=== PATIENT | female | born 1970 | race Caucasian/White ===

== ENCOUNTER 2017-02-18 11:25 | Observation (INO) | payer MEDICARE, BC ==
[2017-02-18 11:25] VITALS: BMI 23.4
[2017-02-18] MEDS ORDERED: Sodium Chloride 0.9% 250 ML IV ONE ×2 (11:35→12:12)
[2017-02-18 12:07] LABS: BASO # 0.1 K/uL (0.0-0.2); BASO % 1.3 % (0.0-2.0); EOS # 0.1 K/uL (0.0-0.7); EOS % 1.4 % (0.0-4.0); HEMATOCRIT 38.9 % (34.0-47.0); LYMPH # 0.9 K/uL (1.0-4.3); LYMPH % 17.1 % (20.0-40.0); MEAN CELL VOLUME 84.1 fL (81.0-99.0); MEAN CORPUSCULAR HEMOGLOBIN 26.3 pg (27.0-31.0); MEAN CORPUSCULAR HGB CONC 31.3 g/dL (33.0-37.0); MEAN PLATELET VOLUME 8.8 fL (7.2-11.7); MONO # 0.3 K/uL (0.0-0.8); MONO % 5.6 % (0.0-10.0); RED CELL DISTRIBUTION WIDTH 20.4 % (11.5-14.5); WHITE BLOOD COUNT 5.2 K/uL (4.8-10.8)
--- NOTE | 2017-02-18 12:13 | C.PDOC ---
History Of Present Illness 47 y/o female with Hx of Anemia presents to ED with complaints of intermittent Vaginal bleeding for the past year. Today Patient was on dialysis when vaginal bleeding started and was sent to ED for evaluation. Patient has seen Dr. Wong but states "she doesn't know what has been done to her". Patient denies abdominal pain, fever chills, N/V/D or any other complaints at this time. Time Seen by Provider: 02/18/17 11:34 Chief Complaint (Nursing): Female Genitourinary History Per: Patient History/Exam Limitations: no limitations Onset/Duration Of Symptoms: Hrs Current Symptoms Are (Timing): Still Present Associated Symptoms: denies: Fever, Nausea, Vomiting Past Medical History Reviewed: Historical Data, Nursing Documentation, Vital Signs Vital Signs: Last Vital Signs Temp 98.4 F 02/18/17 11:28 Pulse 65 02/18/17 18:51 Resp 18 02/18/17 18:51 BP 122/70 02/18/17 18:51 Pulse Ox 99 02/18/17 18:51 - Medical History PMH: Anemia, HTN, Hypercholesterolemia, End Stage Renal Disease (on dialysis t- nikole-sat) Surgical History: - [facility] Procedures EXTIRPATION OF MATTER FROM LEFT CEPHALIC VEIN, PERC APPROACH (06/15/16) HEMODIALYSIS (07/07/14) INSERTION OF INFUSION DEV INTO R FEMOR VEIN, PERC APPROACH (06/15/16) PERFORMANCE OF URINARY FILTRATION, SINGLE (06/25/16) [facility] SHUNT (04/05/14) VACCINATION NEC (07/07/14) VENOUS CATHETERIZATION FOR RENAL DIALYSIS (04/05/14) Family History: States: Unknown Family Hx - Social History Hx Tobacco Use: No Hx Alcohol Use: No Hx Substance Use: No - Immunization History Hx Tetanus Toxoid Vaccination: Yes Hx Influenza Vaccination: Yes Review Of Systems Constitutional: Negative for: Fever, Chills Cardiovascular: Negative for: Chest Pain Respiratory: Negative for: Shortness of Breath Gastrointestinal: Negative for: Nausea, Vomiting, Diarrhea Neurological: Negative for: Weakness, Headache Physical Exam - Physical Exam Appears: Non-toxic, No Acute Distress Skin: Normal Color, Warm Head: Atraumatic, Normacephalic Eye(s): bilateral: Normal Inspection Oral Mucosa: Moist Neck: Normal ROM Cardiovascular: Rhythm Regular Respiratory: No Rales, No Rhonchi, No Wheezing Gastrointestinal/Abdominal: Soft, No Tenderness, No Guarding, No Rebound Extremity: Normal ROM, No Pedal Edema Neurological/Psych: Oriented x3, Normal Speech, Normal Cognition ED Course And Treatment - Laboratory Results Result Diagrams: 02/18/17 11:59 02/18/17 11:59 ECG Rhythm: Sinus Rhythm (Normal) ECG Interpretation: Abnormal Interpretation Of ECG: Minimal voltage criteria for LVH, may be normal variant. Nonspecific ST abnormality Rate From EC O2 Sat by Pulse Oximetry: 99 (RA) Pulse Ox Interpretation: Normal Progress Note: Pt passed ~500ml of clots then bleed down to trickle Medical Decision Making Medical Decision Making: Pt remained stable in the ED Bleeding slowed, H/H ok In view of the heavy bleeding observation indicated Discussed with dr Campbell who agrees with plan Dr. 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 MD/ has examined the patient and agrees with the treatment plan. - Scribe Statement The provider has reviewed the documentation as recorded by the Yaz Mcleod All medical record entries made by the Yaz were at my direction and personally dictated by me. I have reviewed the chart and agree that the record accurately reflects my personal performance of the history, physical exam, medical decision making, and the department course for this patient. I have also personally directed, reviewed, and agree with the discharge instructions and disposition.
[2017-02-18 12:44] LABS: CHLORIDE 91 mmol/L (98-107); POTASSIUM 5.1 mmol/L (3.6-5.2); SODIUM 136 mmol/L (132-148)
[2017-02-18 12:46] LABS: BILIRUBIN,TOTAL 0.9 mg/dL (0.2-1.3); GFR AFRICAN-AMERICAN 6
[2017-02-18 12:47] LABS: ALB/GLOB RATIO 1.2 (1.0-2.1); ALKALINE PHOSPHATASE 41 U/L (38-126); ALT/SGPT 14 U/L (9-52); AST/SGOT 13 U/L (14-36); BLOOD UREA NITROGEN 52 mg/dL (7-17); CARBON DIOXIDE 32 mmol/L (22-30); GLUCOSE,RANDOM 82 mg/dL (65-105); TOTAL PROTEIN 6.8 g/dL (6.3-8.3)
[2017-02-18 12:48] LABS: CALCIUM 8.5 mg/dl (8.6-10.4)
--- NOTE | 2017-02-18 13:21 | US ---
HISTORY: vag bleeding COMPARISON: None available. TECHNIQUE: Transvaginal pelvic ultrasound. FINDINGS: UTERUS: Measures 10.7 x 5.1 x 6.8 cm. Anteverted. ENDOMETRIUM: Measures 7 mm in diameter. RIGHT OVARY: Measures 3.9 x 2.8 x 3.8 cm. Blood flow is demonstrated. 2.8 x 1.8 x 2.9 cm cyst. LEFT OVARY: Measures 3.8 x 2.4 x 3.8 cm. Blood flow is demonstrated. 2.1 x 1.6 x 2.2 cyst. FREE FLUID: No significant free fluid noted. OTHER FINDINGS: None. IMPRESSION: Echogenic heterogeneous material with evidence of vascularity noted at the level of the lower uterine segment/ endocervical canal. Correlate clinically for active hemorrhage. Recommend clinical correlation, gynecologic consultation, and evaluation with hysteroscopy if clinically feasible. Bilateral ovarian cysts.
--- NOTE | 2017-02-19 00:38 | CP.PCM.HP ---
History of Present Illness - History of Present Illness History of Present Illness: Cheif complain: missed HD 47 y/o female with Hx of Anemia presents to ED with complaints of intermittent Vaginal bleeding for the past year. Today Patient was on dialysis when vaginal bleeding started and was sent to ED for evaluation. Patient has seen Dr. Wong but states "she doesn't know what has been done to her". Patient denies abdominal pain, fever chills, N/V/D or any other complaints at this time. Present on Admission - Present on Admission Any Indicators Present on Admission: Yes History of DVT/PE: No History of Uncontrolled Diabetes: No Urinary Catheter: No Decubitus Ulcer Present: No History Surgical Site Infection Following: None Review of Systems - Review of Systems Systems not reviewed;Unavailable: Acuity of Condition - Constitutional Constitutional: Fatigue, Lethargy - Breasts Breasts: Skin Changes - Cardiovascular Cardiovascular: absent: As Per HPI, Acrocyanosis, Chest Pain, Chest Pain at Rest , Chest Pain with Activity, Claudication, Diaphoresis, Dyspnea, Dyspnea on Exertion, Edema, Irregular Heart Rhythm, Pain Radiating to Arm/Neck/Jaw, Leg Edema, Leg Ulcers, Lightheadedness, Orthopnea, Palpitations, Paroxysmal Nocturnal Dyspnea, Pedal Edema, Radiating Pain, Rapid Heart Rate, Slow Heart Rate, Syncope, Other - Respiratory Respiratory: Dyspnea. absent: As Per HPI, Cough, Hemoptysis, Dyspnea on Exertion, Wheezing, Snoring, Stridor, Pain on Inspiration, Chest Congestion, Excessive Mucous Production, Change in Mucous Color, Pain with Coughing, Other - Gastrointestinal Gastrointestinal: absent: As Per HPI, Abdominal Pain, Belching, Bloating, Change in Bowel Habits, Change in Stool Character, Coffee Ground Emesis, Constipation, Cramping, Diarrhea, Dyspepsia, Dysphagia, Early Satiety, Excessive Flatus, Fecal Incontinence, Heartburn, Hematemesis, Hematochezia, Loose Stools, Melena, Nausea, Odynophagia, Temesmus, Vomiting, Other - Menstruation Menstruation: Abnormal Vaginal Bleeding - Endocrine Endocrine: absent: As Per HPI, Change in Body Appearance, Change in Libido, Cold Intolorance, Deepening of Voice, Excessive Sweating, Fatigue, Flushing, Heat Intolorance, Increase in Ring/Shoe/Hat Size, Palpitations, Polydipsia, Polyphagia, Polyuria, Other Past Patient History - Infectious Disease Hx of Infectious Diseases: None - Past Medical History & Family History Past Medical History?: Yes - Past Social History Smoking Status: Never Smoked - CARDIAC Hx Hypercholesterolemia: Yes Hx Hypertension: Yes - PULMONARY Hx Respiratory Disorders: No - NEUROLOGICAL Hx Neurological Disorder: No - HEENT Hx HEENT Problems: No - RENAL Hx Chronic Kidney Disease: Yes Date of Last Dialysis Treatment: 02/18/17 - ENDOCRINE/METABOLIC Hx Endocrine Disorders: No - HEMATOLOGICAL/ONCOLOGICAL Hx Anemia: Yes - INTEGUMENTARY Hx Dermatological Problems: No - MUSCULOSKELETAL/RHEUMATOLOGICAL Hx Musculoskeletal Disorders: No Hx Falls: No - GASTROINTESTINAL Hx Gastrointestinal Disorders: No - GENITOURINARY/GYNECOLOGICAL Hx Genitourinary Disorders: No - PSYCHIATRIC Hx Substance Use: No - SURGICAL HISTORY Hx Surgeries: Yes Hx Section: Yes Hx Vascular Access Device: Yes (Left AV fistula, as per patient has had dialyiss catheter replaced 5 times) Other/Comment: with left subclavian permacath - ANESTHESIA Hx Anesthesia: Yes Hx Anesthesia Reactions: No Hx Malignant Hyperthermia: No Has any member of the family had a problem w/ anesthesia?: No Meds Allergies/Adverse Reactions: Allergies Allergy/AdvReac Type Severity Reaction Status Date / Time No Known Allergies Allergy Verified 10/28/16 09:30 Physical Exam - Constitutional Appears: No Acute Distress - Head Exam Head Exam: ATRAUMATIC, NORMAL INSPECTION, NORMOCEPHALIC - Eye Exam Eye Exam: EOMI, Normal appearance, PERRL Pupil Exam: NORMAL ACCOMODATION, PERRL - Respiratory Exam Respiratory Exam: Clear to Auscultation Bilateral, NORMAL BREATHING PATTERN - Cardiovascular Exam Cardiovascular Exam: REGULAR RHYTHM - GI/Abdominal Exam GI & Abdominal Exam: Normal Bowel Sounds, Soft. absent: Tenderness - Extremities Exam Extremities exam: Positive for: normal inspection Results - Vital Signs Recent Vital Signs: Last Vital Signs Temp 98.7 F 02/18/17 19:03 Pulse 68 02/18/17 19:24 Resp 18 02/18/17 19:24 BP 158/87 H 02/18/17 19:03 Pulse Ox 99 02/18/17 19:06 - Labs Result Diagrams: 02/18/17 11:59 02/18/17 11:59 Assessment & Plan (1) ESRD (end stage renal disease) on dialysis Status: Acute (2) Vaginal bleeding Status: Acute (3) HTN (hypertension) Status: Acute Priority: High
[2017-02-19 01:12] VITALS: RESP 20
[2017-02-19 08:36] VITALS: TEMP 98.3
[2017-02-19] MEDS ORDERED: Metoprolol Succinate 25 mg XL Tab PO SCH (10:00)
--- NOTE | 2017-02-19 13:09 | CP.PCM.CON ---
History of Present Illness - History of Present Illness History of Present Illness: 47 yr [facility] for end stage renal failure c/o vaginal bleeding from 1 month, min bleeding now, no clots.pt states she has irrgularv period for 1 y. saw her md dr perez 3 weeks ago. told her she will find another surgeon for her. pt has min bleeding today. obhx 1 x c/s pmh end stage renal faliure all nkda psh c/s soch den pelvic exam ex gen old blood, cervix closed, min bleeding, ut anteverted, 8 week size, no adexal mass sono echogenic hetrogenous endometrium at the lowe uterine segment/cervix Review of Systems - Reproductive: Female Reproductive:Female: Abnormal Vaginal Bleeding Past Patient History - Infectious Disease Hx of Infectious Diseases: None - Past Medical History & Family History Past Medical History?: Yes - Past Social History Smoking Status: Never Smoked - CARDIAC Hx Hypercholesterolemia: Yes Hx Hypertension: Yes - PULMONARY Hx Respiratory Disorders: No - NEUROLOGICAL Hx Neurological Disorder: No - HEENT Hx HEENT Problems: No - RENAL Hx Chronic Kidney Disease: Yes Date of Last Dialysis Treatment: 02/18/17 - ENDOCRINE/METABOLIC Hx Endocrine Disorders: No - HEMATOLOGICAL/ONCOLOGICAL Hx Anemia: Yes - INTEGUMENTARY Hx Dermatological Problems: No - MUSCULOSKELETAL/RHEUMATOLOGICAL Hx Musculoskeletal Disorders: No Hx Falls: No - GASTROINTESTINAL Hx Gastrointestinal Disorders: No - GENITOURINARY/GYNECOLOGICAL Hx Genitourinary Disorders: No - PSYCHIATRIC Hx Substance Use: No - SURGICAL HISTORY Hx Surgeries: Yes Hx Section: Yes Hx Vascular Access Device: Yes (Left AV fistula, as per patient has had dialyiss catheter replaced 5 times) Other/Comment: with left subclavian permacath - ANESTHESIA Hx Anesthesia: Yes Hx Anesthesia Reactions: No Hx Malignant Hyperthermia: No Has any member of the family had a problem w/ anesthesia?: No Meds Allergies/Adverse Reactions: Allergies Allergy/AdvReac Type Severity Reaction Status Date / Time No Known Allergies Allergy Verified 10/28/16 09:30 - Medications Medications: Current Medications Calcium Acetate (Phoslo) 667 mg PO TID [facility] Last Admin: 02/19/17 10:21 Dose: 667 mg Metoprolol Succinate (Toprol Xl) 25 mg PO DAILY [facility] Last Admin: 02/19/17 10:21 Dose: 25 mg Physical Exam - Constitutional Appears: Well - Exam Exam: NORMAL INSPECTION External exam: NORMAL EXTERNAL EXAM (min bleeding) Bimanual exam: NORMAL BIMANUAL EXAM Results - Vital Signs Recent Vital Signs: Last Vital Signs Temp 98.3 F 02/19/17 08:00 Pulse 73 02/19/17 10:20 Resp 20 02/19/17 08:00 BP 130/78 02/19/17 10:20 Pulse Ox 96 02/19/17 08:00 - Labs Result Diagrams: 02/18/17 11:59 02/18/17 11:59 Assessment & Plan - Assessment and Plan (Free Text) Assessment: 47 yr s/p dialysis for end stage failure/irrgular menses Plan: plan no acute issues. on dc home follow with Dr Perez for d&c as an out pateint . cont medical management Pt understand and agrees - Date & Time Date: 02/19/17 Time: 13:20
--- NOTE | 2017-02-19 14:56 | CP.PCM.PN ---
Subjective - Date & Time of Evaluation Date of Evaluation: 02/19/17 Time of Evaluation: 12:00 - Subjective Subjective: Pt seen and examined today , denies any chest pain sob, + vaginal bleeding , lesser than yesterday, states bleeding on and off for 1 month hgb stable seen by Dr. Quintanilla today , bedside exam done and pt cleared for discharge home and f/u with Dr. Calderon out patient for possible D&C Objective - Vital Signs/Intake and Output Vital Signs (last 24 hours): Temp Pulse Resp BP Pulse Ox 98.3 F 73 20 130/78 96 02/19/17 08:00 02/19/17 10:20 02/19/17 08:00 02/19/17 10:20 02/19/17 08:00 Intake and Output: 02/19/17 02/19/17 06:59 18:59 Intake Total 400 Balance 400 - Medications Medications: Current Medications Calcium Acetate (Phoslo) 667 mg PO TID [facility] Last Admin: 02/19/17 10:21 Dose: 667 mg Metoprolol Succinate (Toprol Xl) 25 mg PO DAILY [facility] Last Admin: 02/19/17 10:21 Dose: 25 mg - Labs Labs: PT 10.6 SECONDS (9.7-12.2) 02/18/17 11:59 INR 1.0 02/18/17 11:59
[2017-02-19 16:12] VITALS: BP 158/86; PULSE 74; O2SAT 100
--- NOTE | 2017-02-20 04:28 | CP.PCM.DIS ---
Provider - Provider Date of Admission: 02/18/17 15:02 Attending physician: Hector Campbell MD Time Spent in preparation of Discharge (in minutes): 30 Diagnosis - Discharge Diagnosis (1) ESRD (end stage renal disease) on dialysis Status: Acute (2) Vaginal bleeding Status: Acute (3) HTN (hypertension) Status: Acute Priority: High Hospital Course - Lab Results Lab Results: Most Recent Lab Values WBC 5.2 K/uL (4.8-10.8) 02/18/17 11:59 RBC 4.63 Mil/uL (3.80-5.20) 02/18/17 11:59 Hgb 12.2 g/dL (11.0-16.0) D 02/18/17 11:59 Hct 38.9 % (34.0-47.0) 02/18/17 11:59 MCV 84.1 fL (81.0-99.0) 02/18/17 11:59 MCH 26.3 pg (27.0-31.0) L 02/18/17 11:59 MCHC 31.3 g/dL (33.0-37.0) L 02/18/17 11:59 RDW 20.4 % (11.5-14.5) H 02/18/17 11:59 Plt Count 213 K/uL (130-400) 02/18/17 11:59 MPV 8.8 fL (7.2-11.7) 02/18/17 11:59 Neut % (Auto) 74.6 % (50.0-75.0) 02/18/17 11:59 Lymph % (Auto) 17.1 % (20.0-40.0) L 02/18/17 11:59 [place] % (Auto) 5.6 % (0.0-10.0) 02/18/17 11:59 Eos % (Auto) 1.4 % (0.0-4.0) 02/18/17 11:59 Baso % (Auto) 1.3 % (0.0-2.0) 02/18/17 11:59 Neut # 3.9 K/uL (1.8-7.0) 02/18/17 11:59 Lymph # 0.9 K/uL (1.0-4.3) L 02/18/17 11:59 [place] # 0.3 K/uL (0.0-0.8) 02/18/17 11:59 Eos # 0.1 K/uL (0.0-0.7) 02/18/17 11:59 Baso # 0.1 K/uL (0.0-0.2) 02/18/17 11:59 PT 10.6 SECONDS (9.7-12.2) 02/18/17 11:59 INR 1.0 02/18/17 11:59 Sodium 136 mmol/L (132-148) 02/18/17 11:59 Potassium 5.1 mmol/L (3.6-5.2) 02/18/17 11:59 Chloride 91 mmol/L (98-107) L 02/18/17 11:59 Carbon Dioxide 32 mmol/L (22-30) H 02/18/17 11:59 Anion Gap 18 (10-20) 02/18/17 11:59 BUN 52 mg/dL (7-17) H 02/18/17 11:59 Creatinine 8.6 MG/DL (0.7-1.2) H* 02/18/17 11:59 Est GFR ( Amer) 6 02/18/17 11:59 Est GFR (Non-Af Amer) 5 02/18/17 11:59 Random Glucose 82 mg/dL (65-105) 02/18/17 11:59 Calcium 8.5 mg/dl (8.6-10.4) L 02/18/17 11:59 Total Bilirubin 0.9 mg/dL (0.2-1.3) 02/18/17 11:59 AST 13 U/L (14-36) L 02/18/17 11:59 ALT 14 U/L (9-52) 02/18/17 11:59 Alkaline Phosphatase 41 U/L (38-126) 02/18/17 11:59 Total Protein 6.8 g/dL (6.3-8.3) 02/18/17 11:59 Albumin 3.7 g/dL (3.5-5.0) 02/18/17 11:59 Globulin 3.1 gm/dL (2.2-3.9) 02/18/17 11:59 Albumin/Globulin Ratio 1.2 (1.0-2.1) 02/18/17 11:59 Beta HCG, Quant < 2.39 mIU/ML 02/18/17 11:59 Blood Type A POSITIVE 02/18/17 12:18 Antibody Screen Negative 02/18/17 12:18 - Hospital Course Hospital Course: Pt seen and examined today , denies any chest pain sob, + vaginal bleeding , lesser than yesterday, states bleeding on and off for 1 month hgb stable seen by Dr. Quintanilla today , bedside exam done and pt cleared for discharge home and f/u with Dr. Calderon out patient for possible D&C Discharge Exam - Head Exam Head Exam: ATRAUMATIC, NORMAL INSPECTION, NORMOCEPHALIC - Eye Exam Eye Exam: EOMI, Normal appearance, PERRL Pupil Exam: NORMAL ACCOMODATION, PERRL - Respiratory Exam Respiratory Exam: Clear to PA & Lateral, NORMAL BREATHING PATTERN - Cardiovascular Exam Cardiovascular Exam: REGULAR RHYTHM, +S1, +S2 - GI/Abdominal Exam GI & Abdominal Exam: Normal Bowel Sounds - Rectal Exam Rectal Exam: Deferred Discharge Plan - Follow Up Plan Condition: FAIR Disposition: HOME/ ROUTINE Instructions: Dialysis Diet (DC), Dialysis Diet (GEN), End Stage Kidney Disease (DC) Additional Instructions: Please f/u with Dr. Campbell office in 1 week f/u with Dr. Wong in 3-5 days- Call for appointment Continue HD as scheduled. Continue medication as per Med. Rec. return to emergency if symptoms persists. Referrals: Alfred Villalobos MD [Staff Provider] - Hector Campbell MD [Staff Provider] - Corrina Wong MD [Staff Provider] -
--- NOTE | 2017-02-20 12:07 | CARD ---
APPROVED REPORT EKG Measurement Heart [id number] <Conclusion> Poor data quality, interpretation may be adversely affected Normal sinus rhythm Minimal voltage criteria for LVH, may be normal variant Nonspecific ST abnormality Abnormal ECG
== END 2017-02-19 16:00 | disposition home or self-care (01) ==
LOC: C.ER 11:25 → C.9E 15:02 → C.5T 16:53
PROVIDERS: ADMIT Internal Medicine; ATTEND Internal Medicine
DX: N93.9 Abnormal uterine and vaginal bleeding, unspecified (principal); E78.00 Pure hypercholesterolemia, unspecified; I12.0 Hypertensive chronic kidney disease with stage 5 chronic kidney disease or end stage renal disease; N18.6 End stage renal disease; Z99.2 Dependence on renal dialysis
CPT/HCPCS: 76830; 80053; 84702; 85025; 85610; 86850; 86900; 99285; G0378; J7040

== ENCOUNTER 2017-02-25 17:28 | Observation (INO) | payer MEDICARE, BC ==
[2017-02-25 17:29] VITALS: BMI 23.4
--- NOTE | 2017-02-25 19:17 | C.PDOC ---
History Of Present Illness 47 y/o female presents to the ED with complaints of feeling dizzy and headache today. Pt receives dialysis on Friday//Saturdays. Denies visual changes , weakness, vomiting or any other complaints. Time Seen by Provider: 02/25/17 19:17 Chief Complaint (Nursing): Dizziness/Lightheaded History Per: Patient History/Exam Limitations: no limitations Onset/Duration Of Symptoms: Hrs Current Symptoms Are (Timing): Still Present Associated Symptoms Preceding Syncopal Episode: No Predromal Symptoms (Sudden Onset) Seizure Or Post-ictal Symptoms: None Fall Associated With With Symptoms: No Severity: Mild Recent travel outside of the [place]: No - Symptoms Of CVA Associated Symptoms: denies: New Vision Deficit(Left), New Vision Deficit(Right) Current Coumadin Use?: No Recent Head Trauma: No Past Medical History Reviewed: Historical Data, Nursing Documentation, Vital Signs Vital Signs: Last Vital Signs Temp 98.6 F 02/25/17 21:30 Pulse 67 02/25/17 21:30 Resp 18 02/25/17 21:30 BP 149/89 02/25/17 21:30 Pulse Ox 100 02/25/17 21:30 - Medical History PMH: Anemia, HTN, Hypercholesterolemia, End Stage Renal Disease (on dialysis t- nikole-sat), Chronic Kidney Disease Surgical History: - [facility] Procedures EXTIRPATION OF MATTER FROM LEFT CEPHALIC VEIN, PERC APPROACH (06/15/16) HEMODIALYSIS (07/07/14) INSERTION OF INFUSION DEV INTO R FEMOR VEIN, PERC APPROACH (06/15/16) PERFORMANCE OF URINARY FILTRATION, SINGLE (06/25/16) [facility] ANNA DIALYSIS SHUNT (04/05/14) VACCINATION NEC (07/07/14) VENOUS CATHETERIZATION FOR RENAL DIALYSIS (04/05/14) Family History: States: Unknown Family Hx - Social History Hx Tobacco Use: No Hx Alcohol Use: No Hx Substance Use: No - Immunization History Hx Tetanus Toxoid Vaccination: Yes Hx Influenza Vaccination: Yes Hx Pneumococcal Vaccination: No Review Of Systems Constitutional: Negative for: Fever, Chills Eyes: Negative for: Vision Change ENT: Negative for: Throat Pain Cardiovascular: Negative for: Chest Pain Respiratory: Negative for: Shortness of Breath Gastrointestinal: Negative for: Vomiting Genitourinary: Negative for: Pelvic Pain Musculoskeletal: Negative for: Back Pain Skin: Negative for: Rash, Lesions, Jaundice, Bruising Neurological: Positive for: Headache, Dizziness. Negative for: Weakness Psych: Negative for: Anxiety Physical Exam - Physical Exam Appears: Non-toxic, No Acute Distress Skin: Warm, Dry, No Rash Head: Atraumatic, Normacephalic Eye(s): bilateral: Normal Inspection, PERRL, EOMI Ear(s): Bilateral: Normal Neck: Trachea Midline, Supple Chest: Symmetrical Cardiovascular: Rhythm Regular, No Murmur Respiratory: No Rales, No Rhonchi, No Wheezing Gastrointestinal/Abdominal: Soft, No Tenderness, No Distention Back: No CVA Tenderness Extremity: Normal ROM, Other (left arm with dialysis shunt, good thrill and bruit) Extremity: Bilateral: Atraumatic, Normal Color And Temperature, Normal ROM Neurological/Psych: Oriented x3, Normal Speech, Normal Cognition, Normal Motor, Normal Sensation Gait: Steady ED Course And Treatment - Laboratory Results Result Diagrams: 02/25/17 20:17 02/25/17 20:17 ECG: Interpreted By Me, Viewed By Ma ECG Rhythm: Sinus Rhythm (69), Nonspecific Changes O2 Sat by Pulse Oximetry: 98 (room air) Pulse Ox Interpretation: Normal - Radiology CXR: Interpreted by Me, Viewed By Me - CT Scan/US CT abdomen Other Rad Studies (CT/US): Read By Radiologist, Radiology Report Reviewed CT/US Interpretation: EXAM: CT Abdomen and Pelvis Without Intravenous Contrast. CLINICAL HISTORY: 47 years old, female; Signs and symptoms; Other: Vaginal bleed; Patient HX: H/o arf; Additional info: Vag bleeding. TECHNIQUE: Axial computed tomography images of the abdomen and pelvis without intravenous contrast. This. CT exam was performed using one or more of the following dose reduction techniques: automated. exposure control, adjustment of the mA and/or kV according to patient size, and/or use of iterative. reconstruction technique. Coronal and sagittal reformatted images were created and reviewed. EXAM DATE/TIME: Exam ordered 02/25/2017 8:15 PM. COMPARISON: CT - ABD/PEL W/PO 02/01/2012 8:46:13 PM. FINDINGS: Lower thorax: Vascular calcifications including coronary artery calcifications Mild atelectasis or. edema in the bases. ABDOMEN: Liver: Probable cysts in the liver not completely characterized. Gallbladder and bile ducts: Unremarkable. No calcified stones. No ductal dilation. Pancreas: Unremarkable. No ductal dilation. Spleen: Unremarkable. No splenomegaly. Adrenals: Unremarkable. No mass. Kidneys and ureters: Markedly enlarged cystic kidneys are noted bilaterally most in keeping with. polycystic kidney disease. Some appear to be calcified bilaterally. Stomach and bowel: Mild fecal retention. No obstruction. No mucosal thickening. Appendix: Appendix not seen. PELVIS: Bladder: Unremarkable. No stones. Reproductive: 1.7 cm low-density left cyst probably an ovarian cyst, sonography as indicated. ABDOMEN and PELVIS: Intraperitoneal space: Unremarkable. No free air. No significant fluid collection. Bones/joints: No acute fracture. No dislocation. Soft tissues: Unremarkable. Vasculature: Unremarkable. No abdominal aortic aneurysm. Lymph nodes: Unremarkable. No enlarged lymph nodes. IMPRESSION: Markedly enlarged cystic kidneys are noted bilaterally most in keeping with polycystic kidney. disease. Some appear to be calcified bilaterally CT head Other Rad Studies (CT/US): Read By Radiologist, Radiology Report Reviewed CT/US Interpretation: EXAM: CT Head Without Intravenous Contrast. CLINICAL HISTORY: 47 years old, female; Pain and signs and symptoms; Dizziness; Headache ; Headache not specified;. Additional info: Headache, dizziness. TECHNIQUE: Axial computed tomography images of the head/brain without intravenous contrast. This CT exam. was performed using one or more of the following dose reduction techniques: automated exposure. control, adjustment of the mA and/or kV according to patient size, and/or use of iterative. reconstruction technique. EXAM DATE/TIME: Exam ordered 02/25/2017 7:38 PM. COMPARISON: No relevant prior studies available. FINDINGS: Brain: Probable old left small basal ganglia lacunar infarct. No hemorrhage. Ventricles: Unremarkable. No ventriculomegaly. Bones/joints: Unremarkable. No acute fracture. Soft tissues : Unremarkable. Sinuses: Unremarkable as visualized. No acute sinusitis. Mastoid air cells: Fluid in the left mastoid air cells. IMPRESSION: Negative acute suspected. Probable old left small basal ganglia lacunar infarct. Further imaging as. clinically indicated. Disposition Discussed With : Hector Campbell Comment: accepted the pt on his service and took over the care at 10:17 PM Doctor Will See Patient In The: Hospital Counseled Patient/Family Regarding: Studies Performed, Diagnosis - Disposition Disposition: HOSPITALIZED Disposition Time: 19:17 Condition: FAIR - POA Present On Arrival: None - Clinical Impression Clinical Impression: Anemia, Dizziness, ESRD (end stage renal disease) on dialysis - Scribe Statement The provider has reviewed the documentation as recorded by the Yaz Blanc Provider Attestation: All medical record entries made by the Yaz were at my direction and personally dictated by me. I have reviewed the chart and agree that the record accurately reflects my personal performance of the history, physical exam, medical decision making, and the department course for this patient. I have also personally directed, reviewed, and agree with the discharge instructions and disposition. Decision To Admit - Pt Status Changed To: Hospital Disposition Of: Observation - . Bed Request Type: Regular Admitting Physician: Hector Campbell Patient Diagnosis: Dizziness, Anemia, ESRD (end stage renal disease) on dialysis
[2017-02-25 20:21] LABS: BASO # 0.1 K/uL (0.0-0.2); EOS # 0.1 K/uL (0.0-0.7); EOS % 1.1 % (0.0-4.0); HEMATOCRIT 23.8 % (34.0-47.0); LYMPH # 1.2 K/uL (1.0-4.3); LYMPH % 24.9 % (20.0-40.0); MEAN CORPUSCULAR HEMOGLOBIN 26.2 pg (27.0-31.0); MEAN CORPUSCULAR HGB CONC 30.8 g/dL (33.0-37.0); MEAN PLATELET VOLUME 9.3 fL (7.2-11.7); MONO # 0.3 K/uL (0.0-0.8); MONO % 7.1 % (0.0-10.0); NRBC % 0.1 % (0.0-2.0); RED CELL DISTRIBUTION WIDTH 20.1 % (11.5-14.5); WHITE BLOOD COUNT 4.7 K/uL (4.8-10.8)
[2017-02-25 20:59] LABS: POTASSIUM 4.5 mmol/L (3.6-5.2)
[2017-02-25 21:01] LABS: ALB/GLOB RATIO 1.4 (1.0-2.1); BILIRUBIN,TOTAL 0.7 mg/dL (0.2-1.3); TOTAL PROTEIN 6.8 g/dL (6.3-8.3)
[2017-02-25 21:02] LABS: CALCIUM 8.3 mg/dl (8.6-10.4)
--- NOTE | 2017-02-26 00:54 | CP.PCM.HP ---
History of Present Illness - History of Present Illness History of Present Illness: CC: vaginal bleeding, dizziness HPI: 47 y/o female presents to the ED with complaints of feeling dizzy and headache today. Pt receives dialysis on Friday//Saturdays. Denies visual changes, weakness, vomiting or any other complaints. Present on Admission - Present on Admission Any Indicators Present on Admission: Yes Review of Systems - Review of Systems Systems not reviewed;Unavailable: Acuity of Condition - Constitutional Constitutional: Fatigue, Lethargy, Malaise, Weakness - Cardiovascular Cardiovascular: absent: As Per HPI, Acrocyanosis, Chest Pain, Chest Pain at Rest , Chest Pain with Activity, Claudication, Diaphoresis, Dyspnea, Dyspnea on Exertion, Edema, Irregular Heart Rhythm, Pain Radiating to Arm/Neck/Jaw, Leg Edema, Leg Ulcers, Lightheadedness, Orthopnea, Palpitations, Paroxysmal Nocturnal Dyspnea, Pedal Edema, Radiating Pain, Rapid Heart Rate, Slow Heart Rate, Syncope, Other - Respiratory Respiratory: Dyspnea - Reproductive: Female Additional comments: vaginal bleeding - Menstruation Menstruation: Abnormal Vaginal Bleeding - Musculoskeletal Musculoskeletal: Muscle Weakness, Myalgias - Neurological Neurological: Dizziness, Headaches, Weakness Past Patient History - Infectious Disease Hx of Infectious Diseases: None - Past Medical History & Family History Past Medical History?: Yes - Past Social History Smoking Status: Never Smoked - CARDIAC Hx Hypercholesterolemia: Yes Hx Hypertension: Yes - PULMONARY Hx Respiratory Disorders: No - NEUROLOGICAL Hx Neurological Disorder: No - HEENT Hx HEENT Problems: No - RENAL Hx Chronic Kidney Disease: Yes - ENDOCRINE/METABOLIC Hx Endocrine Disorders: No - HEMATOLOGICAL/ONCOLOGICAL Hx Anemia: Yes - INTEGUMENTARY Hx Dermatological Problems: No - MUSCULOSKELETAL/RHEUMATOLOGICAL Hx Musculoskeletal Disorders: No Hx Falls: No - GASTROINTESTINAL Hx Gastrointestinal Disorders: No - GENITOURINARY/GYNECOLOGICAL Hx Genitourinary Disorders: No - PSYCHIATRIC Hx Substance Use: No - SURGICAL HISTORY Hx Surgeries: Yes Hx Section: Yes Hx Vascular Access Device: Yes (Left AV fistula, as per patient has had dialyiss catheter replaced 5 times) Other/Comment: with left subclavian permacath - ANESTHESIA Hx Anesthesia: Yes Hx Anesthesia Reactions: No Hx Malignant Hyperthermia: No Meds Allergies/Adverse Reactions: Allergies Allergy/AdvReac Type Severity Reaction Status Date / Time No Known Allergies Allergy Verified 02/25/17 17:40 Physical Exam - Constitutional Appears: No Acute Distress - Head Exam Head Exam: ATRAUMATIC, NORMAL INSPECTION, NORMOCEPHALIC - Eye Exam Eye Exam: EOMI, Normal appearance, PERRL Pupil Exam: NORMAL ACCOMODATION, PERRL - Respiratory Exam Respiratory Exam: Decreased Breath Sounds, Rales - Cardiovascular Exam Cardiovascular Exam: REGULAR RHYTHM - GI/Abdominal Exam GI & Abdominal Exam: Normal Bowel Sounds, Soft. absent: Tenderness Results - Vital Signs Recent Vital Signs: Last Vital Signs Temp 98.6 F 02/25/17 21:30 Pulse 67 02/25/17 21:30 Resp 18 02/25/17 21:30 BP 149/89 02/25/17 21:30 Pulse Ox 98 02/25/17 22:18 - Labs Result Diagrams: 02/26/17 06:24 02/25/17 20:17 Assessment & Plan (1) Anemia Status: Acute (2) Dizziness Status: Acute (3) ESRD (end stage renal disease) on dialysis Status: Acute (4) Anemia Status: Acute (5) CHF (congestive heart failure) Status: Acute
[2017-02-26 07:00] LABS: BASO # 0.1 K/uL (0.0-0.2); BASO % 1.6 % (0.0-2.0); EOS # 0.1 K/uL (0.0-0.7); EOS % 1.6 % (0.0-4.0); HEMATOCRIT 26.5 % (34.0-47.0); LYMPH # 1.1 K/uL (1.0-4.3); LYMPH % 25.9 % (20.0-40.0); MEAN CELL VOLUME 84.4 fL (81.0-99.0); MEAN CORPUSCULAR HEMOGLOBIN 26.9 pg (27.0-31.0); MEAN CORPUSCULAR HGB CONC 31.8 g/dL (33.0-37.0); MEAN PLATELET VOLUME 8.9 fL (7.2-11.7); MONO # 0.3 K/uL (0.0-0.8); MONO % 6.9 % (0.0-10.0); RED CELL DISTRIBUTION WIDTH 18.5 % (11.5-14.5); WHITE BLOOD COUNT 4.1 K/uL (4.8-10.8)
[2017-02-26] MEDS ORDERED: Metoprolol Succinate 50 mg XL Tab PO STA (07:19)
--- NOTE | 2017-02-26 07:31 | CT ---
PROCEDURE: CT HEAD WITHOUT CONTRAST. HISTORY: Headache, dizziness COMPARISON: None available. TECHNIQUE: Axial computed tomography images were obtained through the head/brain without intravenous contrast. Radiation dose: Total exam DLP = 813 mGy-cm. This CT exam was performed using one or more of the following dose reduction techniques: Automated exposure control, adjustment of the mA and/or kV according to patient size, and/or use of iterative reconstruction technique. FINDINGS: HEMORRHAGE: No intracranial hemorrhage. BRAIN: No mass effect or edema. Focal hypodensity seen within the left basal ganglia suggestive for a lacunar infarct. VENTRICLES: Unremarkable. No hydrocephalus. CALVARIUM: Unremarkable. PARANASAL SINUSES: Unremarkable as visualized. No significant inflammatory changes. MASTOID AIR CELLS: Fluid in the left mastoid air cells. OTHER FINDINGS: None. IMPRESSION: No acute intracranial abnormality. Probable focal lacunar infarct in the left basal ganglia. Fluid in the left mastoid air cells. If focal neurologic deficit persists, consider MRI. These findings were preliminarily reported at 8:56 p.m. on 02/25/[address] Addi Russo from [employer].
--- NOTE | 2017-02-26 08:18 | CT ---
PROCEDURE: CT Abdomen and Pelvis without intravenous contrast HISTORY: vag bleeding COMPARISON: None. TECHNIQUE: Technique. Contrast Dose: Radiation dose: Total exam DLP = 224 mGy-cm. This CT exam was performed using one or more of the following dose reduction techniques: Automated exposure control, adjustment of the mA and/or kV according to patient size, and/or use of iterative reconstruction technique. FINDINGS: LOWER THORAX: Cardiomegaly. LIVER: Scattered hepatic cysts. GALLBLADDER AND BILE DUCTS: Unremarkable. PANCREAS: Unremarkable. No gross lesion or ductal dilatation. SPLEEN: Unremarkable. ADRENALS: Unremarkable. No mass. KIDNEYS AND URETERS: Markedly enlarged kidneys with innumerable cysts some of which are calcified consistent with polycystic kidney disease. VASCULATURE: Unremarkable. No aortic aneurysm. BOWEL: Unremarkable. No obstruction. No gross mural thickening. APPENDIX: Unremarkable. Normal appendix. PERITONEUM: Unremarkable. No free fluid. No free air. LYMPH NODES: Unremarkable. No enlarged lymph nodes. BLADDER: Unremarkable. REPRODUCTIVE: Fullness in the cervix and pelvis; correlate with pelvic ultrasound.. BONES: No acute fracture. OTHER FINDINGS: None. IMPRESSION: Markedly enlarged kidneys with innumerable cysts some of which are calcified consistent with polycystic kidney disease.Fullness in the cervix and pelvis; correlate with pelvic ultrasound..
--- NOTE | 2017-02-26 15:33 | CP.PCM.CON ---
History of Present Illness - History of Present Illness History of Present Illness: 47 Y/O HF admitted with symptomatic anemia. Has has increased vaginal bleeding- to be evaluated by senior benefits analyst. Has been on dialysis several years due to AOPKD. S/p blood transfusion today. PMH: AOPKD HTN WILL SCHEDULE DILAYSIS TTS Past Patient History - Infectious Disease Hx of Infectious Diseases: None - Past Medical History & Family History Past Medical History?: Yes - Past Social History Smoking Status: Never Smoked - CARDIAC Hx Hypercholesterolemia: Yes Hx Hypertension: Yes - PULMONARY Hx Respiratory Disorders: No - NEUROLOGICAL Hx Neurological Disorder: No - HEENT Hx HEENT Problems: No - RENAL Hx Chronic Kidney Disease: Yes Hx Dialysis: Yes Type of Dialysis Access: HD - ENDOCRINE/METABOLIC Hx Endocrine Disorders: No - HEMATOLOGICAL/ONCOLOGICAL Hx Anemia: Yes Hx Blood Transfusions: Yes (02/26/2017) Hx Blood Transfusion Reaction: No - INTEGUMENTARY Hx Dermatological Problems: No - MUSCULOSKELETAL/RHEUMATOLOGICAL Hx Musculoskeletal Disorders: No Hx Falls: No - GASTROINTESTINAL Hx Gastrointestinal Disorders: No - GENITOURINARY/GYNECOLOGICAL Hx Genitourinary Disorders: No - PSYCHIATRIC Hx Psychophysiologic Disorder: No Hx Substance Use: No - SURGICAL HISTORY Hx Surgeries: Yes Hx Section: Yes Hx Vascular Access Device: Yes (Left AV fistula, as per patient has had dialyiss catheter replaced 5 times) Other/Comment: with left subclavian permacath - ANESTHESIA Hx Anesthesia: Yes Hx Anesthesia Reactions: No Hx Malignant Hyperthermia: No Meds Allergies/Adverse Reactions: Allergies Allergy/AdvReac Type Severity Reaction Status Date / Time No Known Allergies Allergy Verified 02/25/17 17:40 - Medications Medications: Current Medications Metoprolol Succinate (Toprol Xl) 50 mg PO DAILY WON Results - Vital Signs Recent Vital Signs: Last Vital Signs Temp 98.1 F 02/26/17 07:00 Pulse 72 02/26/17 07:00 Resp 20 02/26/17 07:00 BP 172/95 H 02/26/17 07:00 Pulse Ox 100 02/26/17 07:00 - Labs Result Diagrams: 02/26/17 06:24 02/25/17 20:17 Labs: Laboratory Results - last 24 hr 02/26/17 06:24 WBC 4.1 L RBC 3.14 L Hgb 8.4 L Hct 26.5 L MCV 84.4 MCH 26.9 L MCHC 31.8 L RDW 18.5 H Plt Count 251 MPV 8.9 Neut % (Auto) 64.0 Lymph % (Auto) 25.9 [place] % (Auto) 6.9 Eos % (Auto) 1.6 Baso % (Auto) 1.6 Neut # 2.6 Lymph # 1.1 [place] # 0.3 Eos # 0.1 Baso # 0.1
--- NOTE | 2017-02-26 19:19 | CON ---
DATE: 02/26/2017 The patient is a 47-year-old female admitted with symptomatic anemia. She has had recently increased vaginal bleeding and she is to be evaluated by HIV/AIDS CARE NURSE for this. She has been on dialysis for several years due to adult onset polycystic kidney disease. She is status post a blood transfusion t aayush for severe anemia with hemoglobin of less than 8. PAST MEDICAL HISTORY: Adult onset polycystic kidney disease and hypertension. She also has diagnosi s of hyperlipidemia. PAST SURGICAL HISTORY: Left arm AV fistula. FAMILY HISTORY: Mostly unknown, but apparently she does have a family history of polycystic kidney d isease. SOCIAL HISTORY: Negative for smoking, alcohol abuse or illicit drug use. REVIEW OF SYSTEMS: The patient is weak and dizzy. No actual syncope. She has no chest pain, no dys pnea, no new rashes, no visual disturbances or hearing deficits. No nausea, vomiting or diarrhea. S he has little urine output. She has had the aforementioned vaginal bleeding. PHYSICAL EXAMINATION: GENERAL: She is a well-developed female in no acute distress. VITAL SIGNS: Blood pressure 172/95, temperature 98.1, pulse 72, pulse ox 100% on room air. HEENT: Anicteric. Mouth was clear. NECK: No JVD. RESPIRATORY: Lung morales were clear. HEART: Regular rhythm, no murmur. ABDOMEN: Soft, benign. No mass or organomegaly. EXTREMITIES: No peripheral edema. She had an AV fistula in the upper extremity with a thrill and br uit. NEUROLOGIC: No focal deficits. LABORATORY DATA: Potassium is 4.5, creatinine 5.2, calcium 8.3. Hemoglobin initially was 7.3, after transfusion it was 8.4. IMPRESSION: Vaginal bleeding, end-stage renal disease, adult onset polycystic kidney disease, chroni c anemia, hypertension and dyslipidemia. PLAN: Will be for repeat dialysis tomorrow with another blood transfusion and HIV/AIDS CARE NURSE will evaluate the patient for the vaginal bleeding. We will follow up. Alfred Villalobos MD cc: [id number] TT: 02/26/2017 19:18:42 Confirmation # [id number] Dictation # [id number] mn
--- NOTE | 2017-02-26 23:23 | CP.PCM.PN ---
Subjective - Date & Time of Evaluation Date of Evaluation: 02/26/17 Time of Evaluation: 09:20 - Subjective Subjective: Pt seen and evalauted, still feels weak and c/o vaginal bleeding, pt is for Paper Sales Representative consult Objective - Vital Signs/Intake and Output Vital Signs (last 24 hours): Temp Pulse Resp BP Pulse Ox 98 F 73 18 158/92 H 97 02/26/17 23:16 02/26/17 23:16 02/26/17 23:16 02/26/17 23:16 02/26/17 23:16 - Medications Medications: Current Medications Metoprolol Succinate (Toprol Xl) 50 mg PO DAILY WON - Labs Labs: 02/26/17 06:24 - Constitutional Appears: No Acute Distress - Head Exam Head Exam: ATRAUMATIC, NORMAL INSPECTION, NORMOCEPHALIC - Eye Exam Eye Exam: EOMI, Normal appearance, PERRL Pupil Exam: NORMAL ACCOMODATION, PERRL - Respiratory Exam Respiratory Exam: Clear to Ausculation Bilateral, NORMAL BREATHING PATTERN - Cardiovascular Exam Cardiovascular Exam: REGULAR RHYTHM, +S1, +S2. absent: Murmur - GI/Abdominal Exam GI & Abdominal Exam: Soft, Normal Bowel Sounds. absent: Tenderness - Neurological Exam Neurological Exam: Alert, Awake, CN II-XII Intact, Normal Gait, Oriented x3 - Psychiatric Exam Psychiatric exam: Normal Affect, Normal Mood Assessment and Plan (1) Anemia Assessment & Plan: vaginal bleeding with drop in Hb s/p blood trabsfusion awaiting Paper Sales Representative consult Status: Acute (2) Dizziness Status: Acute (3) ESRD (end stage renal disease) on dialysis Status: Acute (4) Anemia Status: Acute (5) CHF (congestive heart failure) Status: Acute
[2017-02-27 07:32] LABS: HEMATOCRIT 27.2 % (34.0-47.0); MEAN CELL VOLUME 85.4 fL (81.0-99.0); MEAN CORPUSCULAR HEMOGLOBIN 27.1 pg (27.0-31.0); MEAN CORPUSCULAR HGB CONC 31.7 g/dL (33.0-37.0); MEAN PLATELET VOLUME 9.1 fL (7.2-11.7); RED CELL DISTRIBUTION WIDTH 18.6 % (11.5-14.5); WHITE BLOOD COUNT 4.1 K/uL (4.8-10.8)
[2017-02-27 07:39] LABS: CHLORIDE 89 mmol/L (98-107); POTASSIUM 5.6 mmol/L (3.6-5.2); SODIUM 132 mmol/L (132-148)
[2017-02-27 07:41] LABS: AST/SGOT 4 U/L (14-36); BILIRUBIN,TOTAL 0.8 mg/dL (0.2-1.3); CARBON DIOXIDE 31 mmol/L (22-30); GFR AFRICAN-AMERICAN 5
[2017-02-27 07:42] LABS: ALB/GLOB RATIO 1.6 (1.0-2.1); ALKALINE PHOSPHATASE 34 U/L (38-126); ALT/SGPT 8 U/L (9-52); BLOOD UREA NITROGEN 45 mg/dL (7-17); GLUCOSE,RANDOM 80 mg/dL (65-105); PHOSPHOROUS 8.5 mg/dL (2.5-4.5); TOTAL PROTEIN 5.8 g/dL (6.3-8.3)
[2017-02-27 07:43] LABS: CALCIUM 8.4 mg/dl (8.6-10.4)
--- NOTE | 2017-02-27 09:21 | CP.PCM.PN ---
Subjective - Date & Time of Evaluation Date of Evaluation: 02/27/17 Time of Evaluation: 09:19 - Subjective Subjective: Seen at dialysis For 2nd blood transfusion now Less vaginal bleeding No other complaints BP elevated- will add amlodipine TSAT low- add IV ferrlecit Phos elevated- resume binders Objective - Vital Signs/Intake and Output Vital Signs (last 24 hours): Temp Pulse Resp BP Pulse Ox 97.9 F 71 20 164/92 H 99 02/27/17 07:00 02/27/17 07:00 02/27/17 07:00 02/27/17 07:00 02/27/17 07:00 - Medications Medications: Current Medications Amlodipine Besylate (Norvasc) 5 mg PO DAILY WON Calcium Acetate (Phoslo) 1,334 mg PO TID WON Ferric Sodium Gluconate Complex (Ferrlecit) 125 mg IVPB DAILY WON Stop: 03/03/17 10:01 Metoprolol Succinate (Toprol Xl) 50 mg PO DAILY WON - Labs Labs: 02/27/17 07:20 02/27/17 07:20 - Constitutional Appears: No Acute Distress - Head Exam Head Exam: ATRAUMATIC, NORMAL INSPECTION - Eye Exam Eye Exam: Normal appearance - Respiratory Exam Respiratory Exam: NORMAL BREATHING PATTERN - Cardiovascular Exam Cardiovascular Exam: REGULAR RHYTHM, +S1 - GI/Abdominal Exam GI & Abdominal Exam: Soft. absent: Tenderness - Extremities Exam Extremities Exam: Normal Inspection. absent: Tenderness - Neurological Exam Neurological Exam: Alert, CN II-XII Intact - Skin Skin Exam: Dry, Warm Assessment and Plan (1) ESRD (end stage renal disease) on dialysis Status: Acute (2) Chronic disease anemia Status: Acute (3) Vaginal bleeding Status: Acute (4) Adult type polycystic kidney Status: Acute - Assessment and Plan (Free Text) Plan: Dilaysis now blood transfusion Start binders Add amlodipine Add IV Fe Sccm Administrator follow up
[2017-02-27] MEDS: Metoprolol Succinate 50 mg XL Tab PO SCH ×2 (09:50→13:24)
[2017-02-27] MEDS ORDERED: Ferric Sodium Gluconat Complex 62.5 mg/5 ml Vial IVPB SCH (10:00)
[2017-02-27 15:19] VITALS: BP 148/84; PULSE 75; RESP 20; TEMP 98.1; O2SAT 97
--- NOTE | 2017-02-27 16:35 | CP.PCM.PN ---
Subjective - Date & Time of Evaluation Date of Evaluation: 02/27/17 Time of Evaluation: 13:00 - Subjective Subjective: Pt seen an d examined today , denies any dizziness, weakness, chest pain, sob s/p HD today and received 1 unit OF PRBC with HD hg improved no overnight events reported by RN Objective - Vital Signs/Intake and Output Vital Signs (last 24 hours): Temp Pulse Resp BP Pulse Ox 98.1 F 75 20 148/84 97 02/27/17 15:16 02/27/17 15:16 02/27/17 15:16 02/27/17 15:16 02/27/17 15:16 Intake and Output: 02/27/17 02/27/17 06:59 18:59 Intake Total 375 Balance 375 - Medications Medications: Current Medications Amlodipine Besylate (Norvasc) 5 mg PO DAILY [facility] Last Admin: 02/27/17 13:24 Dose: 5 mg Calcium Acetate (Phoslo) 1,334 mg PO TIDCC [facility] Last Admin: 02/27/17 13:24 Dose: 1,334 mg Ferric Sodium Gluconate Complex (Ferrlecit) 125 mg IVPB DAILY [facility] Stop: 03/03/17 10:01 Last Admin: 02/27/17 10:09 Dose: 125 mg Metoprolol Succinate (Toprol Xl) 50 mg PO DAILY [facility] Last Admin: 02/27/17 13:24 Dose: 50 mg - Labs Labs: 02/27/17 07:20 02/27/17 07:20 - Constitutional Appears: Well, No Acute Distress - Respiratory Exam Respiratory Exam: Clear to Ausculation Bilateral, NORMAL BREATHING PATTERN - Cardiovascular Exam Cardiovascular Exam: REGULAR RHYTHM, +S1, +S2 - Neurological Exam Neurological Exam: Alert, Awake, CN II-XII Intact, Normal Gait, Oriented x3 Neuro motor strength exam: Left Upper Extremity: 5, Right Upper Extremity: 5, Left Lower Extremity: 5, Right Lower Extremity: 5 Assessment and Plan - Assessment and Plan (Free Text) Assessment: 47 yr old female admitted for dizziness/headache ,/vaginal bleeding on and off , symptomatic anemia with HGB 7.3 s/p prbc transfusion an dhgb improved s/p I more unit with HD today ct scan - No acute intracranial abnormality. Probable focal lacunar infarct in the left basal ganglia. Fluid in the left mastoid air cells. MRI -ordered and pt refused states nothing wrong with me everything fine Pt has no focal deficits d/W Dr. Campbell, stable for discharge home today and f/u with Dr. Campbell office in [address] Wong, recommends to go to her office [facility] and she will schedule for D&C out pt discharge plan discussed with patient , via clinical rehabilitation specialist who understands and agrees with plan
--- NOTE | 2017-02-27 23:25 | CP.PCM.DIS ---
Provider - Provider Date of Admission: 02/25/17 22:19 Attending physician: Hector Campbell MD Time Spent in preparation of Discharge (in minutes): 51 Diagnosis - Discharge Diagnosis (1) Anemia Status: Acute (2) Dizziness Status: Acute (3) ESRD (end stage renal disease) on dialysis Status: Acute (4) Anemia Status: Acute (5) CHF (congestive heart failure) Status: Acute Hospital Course - Lab Results Lab Results: Most Recent Lab Values WBC 4.1 K/uL (4.8-10.8) L 02/27/17 07:20 RBC 3.18 Mil/uL (3.80-5.20) L 02/27/17 07:20 Hgb 8.6 g/dL (11.0-16.0) L 02/27/17 07:20 Hct 27.2 % (34.0-47.0) L 02/27/17 07:20 MCV 85.4 fL (81.0-99.0) 02/27/17 07:20 MCH 27.1 pg (27.0-31.0) 02/27/17 07:20 MCHC 31.7 g/dL (33.0-37.0) L 02/27/17 07:20 RDW 18.6 % (11.5-14.5) H 02/27/17 07:20 Plt Count 264 K/uL (130-400) 02/27/17 07:20 MPV 9.1 fL (7.2-11.7) 02/27/17 07:20 Neut % (Auto) 64.0 % (50.0-75.0) 02/26/17 06:24 Lymph % (Auto) 25.9 % (20.0-40.0) 02/26/17 06:24 Baca % (Auto) 6.9 % (0.0-10.0) 02/26/17 06:24 Eos % (Auto) 1.6 % (0.0-4.0) 02/26/17 06:24 Baso % (Auto) 1.6 % (0.0-2.0) 02/26/17 06:24 Neut # 2.6 K/uL (1.8-7.0) 02/26/17 06:24 Lymph # 1.1 K/uL (1.0-4.3) 02/26/17 06:24 Baca # 0.3 K/uL (0.0-0.8) 02/26/17 06:24 Eos # 0.1 K/uL (0.0-0.7) 02/26/17 06:24 Baso # 0.1 K/uL (0.0-0.2) 02/26/17 06:24 Sodium 132 mmol/L (132-148) 02/27/17 07:20 Potassium 5.6 mmol/L (3.6-5.2) H 02/27/17 07:20 Chloride 89 mmol/L (98-107) L 02/27/17 07:20 Carbon Dioxide 31 mmol/L (22-30) H 02/27/17 07:20 Anion Gap 18 (10-20) 02/27/17 07:20 BUN 45 mg/dL (7-17) H 02/27/17 07:20 Creatinine 9.4 MG/DL (0.7-1.2) H* D 02/27/17 07:20 Est GFR ( Amer) 5 02/27/17 07:20 Est GFR (Non-Af Amer) 4 02/27/17 07:20 Random Glucose 80 mg/dL (65-105) 02/27/17 07:20 Calcium 8.4 mg/dl (8.6-10.4) L 02/27/17 07:20 Phosphorus 8.5 mg/dL (2.5-4.5) H 02/27/17 07:20 % Saturation 11 (20-55) L 02/27/17 07:20 Total Bilirubin 0.8 mg/dL (0.2-1.3) 02/27/17 07:20 AST 4 U/L (14-36) L D 02/27/17 07:20 ALT 8 U/L (9-52) L D 02/27/17 07:20 Alkaline Phosphatase 34 U/L (38-126) L D 02/27/17 07:20 Total Protein 5.8 g/dL (6.3-8.3) L 02/27/17 07:20 Albumin 3.6 g/dL (3.5-5.0) 02/27/17 07:20 Globulin 2.3 gm/dL (2.2-3.9) 02/27/17 07:20 Albumin/Globulin Ratio 1.6 (1.0-2.1) 02/27/17 07:20 Hep Bs Antigen Negative (NEGATIVE) 02/27/17 07:20 Blood Type A POSITIVE 02/25/17 20:32 Antibody Screen Negative 02/25/17 20:32 - Hospital Course Hospital Course: Pt seen an d examined today , denies any dizziness, weakness, chest pain, sob s/p HD today and received 1 unit OF PRBC with HD hg improved no overnight events reported by borematic machine operator Exam - Head Exam Head Exam: ATRAUMATIC, NORMAL INSPECTION - Eye Exam Eye Exam: EOMI, Normal appearance, PERRL Pupil Exam: NORMAL ACCOMODATION, PERRL - ENT Exam ENT Exam: Mucous Membranes Moist - Respiratory Exam Respiratory Exam: Clear to PA & Lateral, NORMAL BREATHING PATTERN - Cardiovascular Exam Cardiovascular Exam: REGULAR RHYTHM, +S1, +S2 - GI/Abdominal Exam GI & Abdominal Exam: Normal Bowel Sounds Discharge Plan - Discharge Medications Prescriptions: Aspirin [Adult Low Dose Aspirin EC] 81 mg PO DAILY #30 tablet. Atorvastatin [Lipitor] 10 mg PO HS #30 tab amLODIPine [Norvasc] 5 mg PO DAILY #30 tab - Follow Up Plan Condition: FAIR Disposition: HOME/ ROUTINE Instructions: Amlodipine (By mouth), Atorvastatin (By mouth), Renal Failure Diet (DC), Chronic Hypertension (DC), Anemia (DC), End Stage Kidney Disease (DC) Additional Instructions: F/u with Dr. Wong office tomprrow - ( to discuss about procedure which she is already scheduled) continue HD as scheduled f/u with Dr. Campbell office in 1 week Continue meds. Referrals: Hector Campbell MD [Staff Provider] - Corrina Wong MD [Staff Provider] -
--- NOTE | 2017-02-27 23:32 | CP.PCM.DIS ---
Provider - Provider Date of Admission: 02/25/17 22:19 Attending physician: Hetcor Campbell MD Time Spent in preparation of Discharge (in minutes): 51 Diagnosis - Discharge Diagnosis (1) Anemia Status: Acute (2) Dizziness Status: Acute (3) ESRD (end stage renal disease) on dialysis Status: Acute (4) Anemia Status: Acute (5) CHF (congestive heart failure) Status: Acute Hospital Course - Lab Results Lab Results: Most Recent Lab Values WBC 4.1 K/uL (4.8-10.8) L 02/27/17 07:20 RBC 3.18 Mil/uL (3.80-5.20) L 02/27/17 07:20 Hgb 8.6 g/dL (11.0-16.0) L 02/27/17 07:20 Hct 27.2 % (34.0-47.0) L 02/27/17 07:20 MCV 85.4 fL (81.0-99.0) 02/27/17 07:20 MCH 27.1 pg (27.0-31.0) 02/27/17 07:20 MCHC 31.7 g/dL (33.0-37.0) L 02/27/17 07:20 RDW 18.6 % (11.5-14.5) H 02/27/17 07:20 Plt Count 264 K/uL (130-400) 02/27/17 07:20 MPV 9.1 fL (7.2-11.7) 02/27/17 07:20 Neut % (Auto) 64.0 % (50.0-75.0) 02/26/17 06:24 Lymph % (Auto) 25.9 % (20.0-40.0) 02/26/17 06:24 Ross % (Auto) 6.9 % (0.0-10.0) 02/26/17 06:24 Eos % (Auto) 1.6 % (0.0-4.0) 02/26/17 06:24 Baso % (Auto) 1.6 % (0.0-2.0) 02/26/17 06:24 Neut # 2.6 K/uL (1.8-7.0) 02/26/17 06:24 Lymph # 1.1 K/uL (1.0-4.3) 02/26/17 06:24 Ross # 0.3 K/uL (0.0-0.8) 02/26/17 06:24 Eos # 0.1 K/uL (0.0-0.7) 02/26/17 06:24 Baso # 0.1 K/uL (0.0-0.2) 02/26/17 06:24 Sodium 132 mmol/L (132-148) 02/27/17 07:20 Potassium 5.6 mmol/L (3.6-5.2) H 02/27/17 07:20 Chloride 89 mmol/L (98-107) L 02/27/17 07:20 Carbon Dioxide 31 mmol/L (22-30) H 02/27/17 07:20 Anion Gap 18 (10-20) 02/27/17 07:20 BUN 45 mg/dL (7-17) H 02/27/17 07:20 Creatinine 9.4 MG/DL (0.7-1.2) H* D 02/27/17 07:20 Est GFR ( Amer) 5 02/27/17 07:20 Est GFR (Non-Af Amer) 4 02/27/17 07:20 Random Glucose 80 mg/dL (65-105) 02/27/17 07:20 Calcium 8.4 mg/dl (8.6-10.4) L 02/27/17 07:20 Phosphorus 8.5 mg/dL (2.5-4.5) H 02/27/17 07:20 % Saturation 11 (20-55) L 02/27/17 07:20 Total Bilirubin 0.8 mg/dL (0.2-1.3) 02/27/17 07:20 AST 4 U/L (14-36) L D 02/27/17 07:20 ALT 8 U/L (9-52) L D 02/27/17 07:20 Alkaline Phosphatase 34 U/L (38-126) L D 02/27/17 07:20 Total Protein 5.8 g/dL (6.3-8.3) L 02/27/17 07:20 Albumin 3.6 g/dL (3.5-5.0) 02/27/17 07:20 Globulin 2.3 gm/dL (2.2-3.9) 02/27/17 07:20 Albumin/Globulin Ratio 1.6 (1.0-2.1) 02/27/17 07:20 Hep Bs Antigen Negative (NEGATIVE) 02/27/17 07:20 Blood Type A POSITIVE 02/25/17 20:32 Antibody Screen Negative 02/25/17 20:32 - Hospital Course Hospital Course: Pt seen an d examined today , denies any dizziness, weakness, chest pain, sob s/p HD today and received 1 unit OF PRBC with HD hg improved , pt is for discharge to home no overnight events reported by feed blender Exam - Head Exam Head Exam: ATRAUMATIC, NORMAL INSPECTION - Eye Exam Eye Exam: EOMI, Normal appearance, PERRL Pupil Exam: NORMAL ACCOMODATION, PERRL - ENT Exam ENT Exam: Mucous Membranes Moist - Respiratory Exam Respiratory Exam: Clear to PA & Lateral - Cardiovascular Exam Cardiovascular Exam: REGULAR RHYTHM, +S1, +S2 - GI/Abdominal Exam GI & Abdominal Exam: Normal Bowel Sounds Discharge Plan - Discharge Medications Prescriptions: Aspirin [Adult Low Dose Aspirin EC] 81 mg PO DAILY #30 tablet. Atorvastatin [Lipitor] 10 mg PO HS #30 tab amLODIPine [Norvasc] 5 mg PO DAILY #30 tab - Follow Up Plan Condition: FAIR Disposition: HOME/ ROUTINE Instructions: Amlodipine (By mouth), Atorvastatin (By mouth), Renal Failure Diet (DC), Chronic Hypertension (DC), Anemia (DC), End Stage Kidney Disease (DC) Additional Instructions: F/u with Dr. Wong office tommorow - ( to discuss about procedure which she is already scheduled) continue HD as scheduled f/u with Dr. Campbell office in 1 week Continue meds. Referrals: Hector Campbell MD [Staff Provider] - Corrina Wong MD [Staff Provider] -
== END 2017-02-27 17:22 | disposition home or self-care (01) ==
LOC: C.ER 17:28 → C.9E 22:19 → C.5T 02-26 01:14
PROVIDERS: ADMIT Internal Medicine; ATTEND Internal Medicine
DX: D63.8 Anemia in other chronic diseases classified elsewhere (principal); E78.00 Pure hypercholesterolemia, unspecified; I13.2 Hypertensive heart and chronic kidney disease with heart failure and with stage 5 chronic kidney disease, or end stage renal disease; I50.9 Heart failure, unspecified; N18.6 End stage renal disease; Z99.2 Dependence on renal dialysis
CPT/HCPCS: 36415; 36430; 70450; 74176; 80053; 84100; 85025; 85027; 86850; 86900; 86920; 87340; 99285; G0257; G0378; J2916; P9051

== ENCOUNTER 2017-12-08 11:47 | Emergency (ER) | payer MEDICARE, BC ==
[2017-12-08 11:47] VITALS: BMI 19.5
[2017-12-08 11:53] VITALS: BP 187/95; PULSE 85; RESP 18; TEMP 97.8; O2SAT 100
[2017-12-08] MEDS ORDERED: Naproxen 550 mg Tab PO STA (12:11)
--- NOTE | 2017-12-08 12:15 | C.PDOC ---
History Of Present Illness 47 y/o female presents to the ER complaining of right shoulder pain which has been present for the past 3 days. Patient denies having trauma, injury, fever, chills, and other complaints. Of note, patient has history of End Stage Renal Disease and she is due for dialysis tomorrow. Time Seen by Provider: 12/08/17 12:02 Chief Complaint (Nursing): Upper Extremity Problem/Injury History Per: Patient History/Exam Limitations: no limitations Onset/Duration Of Symptoms: Days Current Symptoms Are (Timing): Still Present Severity: Moderate Past Medical History Reviewed: Historical Data, Nursing Documentation, Vital Signs Vital Signs: Last Vital Signs Temp 97.8 F 12/08/17 11:48 Pulse 85 12/08/17 11:48 Resp 18 12/08/17 11:48 BP 187/95 H 12/08/17 11:48 Pulse Ox 100 12/08/17 12:42 - Medical History PMH: Anemia, HTN, Hypercholesterolemia, End Stage Renal Disease (on dialysis t- nikole-sat), Chronic Kidney Disease Surgical History: Other Surgeries: Hx of surgeries - [facility] Procedures EXTIRPATION OF MATTER FROM LEFT CEPHALIC VEIN, PERC APPROACH (06/15/16) HEMODIALYSIS (07/07/14) INSERTION OF INFUSION DEV INTO R FEMOR VEIN, PERC APPROACH (06/15/16) PERFORMANCE OF URINARY FILTRATION, SINGLE (06/25/16) [facility]UNT (04/05/14) VACCINATION NEC (07/07/14) VENOUS CATHETERIZATION FOR RENAL DIALYSIS (04/05/14) Family History: States: No Known Family Hx - Social History Hx Tobacco Use: No Hx Alcohol Use: No Hx Substance Use: No - Immunization History Hx Tetanus Toxoid Vaccination: Yes Hx Influenza Vaccination: Yes Hx Pneumococcal Vaccination: No Review Of Systems Except As Marked, All Systems Reviewed And Found Negative. Constitutional: Negative for: Fever, Chills Musculoskeletal: Positive for: Shoulder Pain (right shoulder pain) Neurological: Negative for: Weakness, Numbness Physical Exam - Physical Exam Appears: Non-toxic, No Acute Distress, Other (talking on the phone) Skin: Normal Color, Warm, Dry Head: Atraumatic, Normacephalic Eye(s): bilateral: Normal Inspection Nose: Normal Oral Mucosa: Moist Neck: Supple Chest: Symmetrical Cardiovascular: Rhythm Regular Respiratory: Normal Breath Sounds, No Rales, No Rhonchi, No Wheezing Extremity: Normal ROM, Tenderness (mild right shoulder tenderness), No Deformity , No Swelling Neurological/Psych: Oriented x3, Normal Speech, Normal Motor, Normal Sensation ED Course And Treatment O2 Sat by Pulse Oximetry: 100 (RA) Pulse Ox Interpretation: Normal Medical Decision Making Medical Decision Making: suspect msk pain - no erythema, no pain with rom. no fever Plan: --Naproxen 550 mg PO --X-Ray- Right Shoulder pt reassesed xr neg. advise outpt fu and return precautions Disposition - Disposition Referrals: [facility] [Outside] [facility] [Outside] [facility] [Outside] Disposition: HOME/ ROUTINE Disposition Time: 12:40 Condition: STABLE Additional Instructions: please follow up with specialist. return to er with worsening symptoms or concerns. Prescriptions: Naproxen 500 mg PO BID PRN #14 tablet PRN Reason: Pain, Mild (1-3) Instructions: Shoulder Sprain (DC) Forms: [employer] (Ukrainian) - Clinical Impression Clinical Impression: Shoulder pain - Scribe Statement The provider has reviewed the documentation as recorded by the Yaz Curtis Provider Attestation: All medical record entries made by the Alissaibjuarez were at my direction and personally dictated by me. I have reviewed the chart and agree that the record accurately reflects my personal performance of the history, physical exam, medical decision making, and the department course for this patient. I have also personally directed, reviewed, and agree with the discharge instructions and disposition.
[2017-12-08] MEDS ORDERED: Naproxen 550 mg Tab PO ONE (12:20)
--- NOTE | 2017-12-08 13:29 | RAD ---
PROCEDURE: Radiographs of the Right Shoulder HISTORY: shoulder Pain. No history of recent/ related trauma provided COMPARISON: None. FINDINGS: BONES: Normal. No fracture. JOINTS: Normal. Glenohumeral and acromioclavicular joints preserved. No osteoarthritis. SOFT TISSUES: Normal. OTHER FINDINGS: None. IMPRESSION: Normal radiographs of the right shoulder. Concordant results with the preliminary interpretation rendered by the emergency department physician procedure.
== END 2017-12-08 12:47 | disposition home or self-care (01) ==
LOC: C.ER 11:47
DX: M25.511 Pain in right shoulder (principal)